=== PATIENT | male | born 1930 | race Caucasian/White ===

== ENCOUNTER 2017-03-09 14:08 | Inpatient (IN) | payer MEDICARE, OTHER ==
[~2017-03-09] VITALS: Ht 167.6 cm; Wt 81.5 kg
[2017-03-09] MEDS ORDERED: ASPIRIN 81 MG TABLET CHEW PO ONE (14:30)
[2017-03-09 14:57] LABS: ASPARTATE AMINO TRANSFERASE 24 U/L (15-37); BLOOD UREA NITROGEN 30 mg/dL (7-18)
[2017-03-09] MEDS ORDERED: CEFTRIAXONE PMX 1GM/50ML 50 ML IV ONE (15:00)
[2017-03-09 15:03] LABS: IS PT STATUS REG ER OR PRE ER? YES
[2017-03-09] MEDS ORDERED: ACETAMINOPHEN 325 MG TABLET PO PRN (15:30)
[2017-03-09] MEDS ORDERED: ONDANSETRON 2MG/ML, 2ML IVP PRN (15:30)
[2017-03-09] MEDS ORDERED: GUAIFENESIN/DM 200-20MG, 10ML UDC PO PRN (15:30)
[2017-03-09 17:09] VITALS: BP 120/64
[2017-03-09] MEDS: SODIUM CHLORIDE 0.9% 1,000 ML IV SCH (17:21)
[2017-03-09] MEDS ORDERED: DEXT15DR16 OP (18:21)
[2017-03-09] MEDS ORDERED: LOSA100T6 PO (18:21)
[2017-03-09] MEDS ORDERED: TAMS0.4C2 PO (18:21)
[2017-03-09] MEDS ORDERED: GABA300C10 PO (18:21)
[2017-03-09] MEDS ORDERED: MECL-76 PO (18:21)
[2017-03-09] MEDS ORDERED: DOCU240C53 PO (18:21)
[2017-03-09] MEDS ORDERED: ASPI81TA50 PO (18:21)
[2017-03-09] MEDS ORDERED: AMLO5TAB2 PO (18:21)
[2017-03-09] MEDS ORDERED: DOCU100C8 PO (18:21)
[2017-03-09] MEDS ORDERED: FURO20TA3 PO (18:21)
[2017-03-09] MEDS ORDERED: [UNRECOGNIZED DRUG - CODE] OP (18:21)
[2017-03-09] MEDS ORDERED: ATOR20TA9 PO (18:21)
[2017-03-09] MEDS ORDERED: ACET650T59 PO (18:21)
[2017-03-09] MEDS ORDERED: CHOL200040 PO (18:21)
[2017-03-09] MEDS ORDERED: AMLO10TA2 PO (18:21)
[2017-03-09] MEDS ORDERED: LANS15CA5 PO (18:21)
[2017-03-09] MEDS ORDERED: DULO30CA2 PO (18:21)
[2017-03-09] MEDS ORDERED: FINA5TAB4 PO (18:21)
[2017-03-09] MEDS: INSULIN REGULAR 100 UNITS/ML, 3ML VIAL SQ-INSULIN SCH ×2 (18:31→20:18)
[2017-03-09 19:36] VITALS: BP 127/65
[2017-03-09] MEDS: HEPARIN 5,000 UNITS/ML, 1ML SQ SCH (20:08)
[2017-03-09] MEDS: LEVOFLOXACIN/PMX 750MG/150ML 150 ML IV SCH (20:08)
[2017-03-10 01:46] VITALS: BP_SYST 120; BP_SYST 122; BP_DIAS 63
[2017-03-10] MEDS: SODIUM CHLORIDE 0.9% 1,000 ML IV SCH ×2 (03:18→11:46)
[2017-03-10] MEDS: HEPARIN 5,000 UNITS/ML, 1ML SQ SCH ×3 (05:23→19:48)
[2017-03-10 05:30] LABS: BLOOD UREA NITROGEN 31 mg/dL (7-18)
[2017-03-10 07:02] VITALS: BP 130/66
[2017-03-10 07:05] VITALS: BP 130/66
[2017-03-10] MEDS: INSULIN REGULAR 100 UNITS/ML, 3ML VIAL SQ-INSULIN SCH ×4 (08:54→20:11)
[2017-03-10 13:17] VITALS: BP 131/70
[2017-03-10 13:18] VITALS: BP 131/70
[2017-03-10] MEDS ORDERED: ARTIFICIAL TEARS OPHTH SOLN 15ML OP PRN (14:00)
[2017-03-10] MEDS: AMLODIPINE 5 MG TABLET PO SCH (14:00)
[2017-03-10] MEDS: LEVOFLOXACIN/PMX 750MG/150ML 150 ML IV SCH (19:48)
[2017-03-10 19:50] VITALS: BP 119/70
[2017-03-10] MEDS ORDERED: GABAPENTIN 300 MG CAPSULE PO SCH (21:00)
[2017-03-11 00:50] VITALS: BP 131/75
[2017-03-11] MEDS: SODIUM CHLORIDE 0.9% 1,000 ML IV SCH (02:45)
[2017-03-11] MEDS: HEPARIN 5,000 UNITS/ML, 1ML SQ SCH (05:05)
[2017-03-11 06:44] VITALS: BP 153/63
[2017-03-11 06:46] VITALS: BP 153/63
[2017-03-11] MEDS ORDERED: PANTOPROZOLE 40MG TABLET PO SCH (07:30)
[2017-03-11] MEDS: INSULIN REGULAR 100 UNITS/ML, 3ML VIAL SQ-INSULIN SCH (07:59)
[2017-03-11] MEDS: AMLODIPINE 5 MG TABLET PO SCH (08:01)
[2017-03-11] MEDS ORDERED: TAMSULOSIN 0.4 MG CAP.ER.24H PO SCH (09:00)
[2017-03-11] MEDS ORDERED: ATORVASTATIN 20 MG TABLET PO SCH (09:00)
[2017-03-11] MEDS ORDERED: DOCUSATE CALCIUM 240 MG CAPSULE PO SCH (09:00)
[2017-03-11] MEDS ORDERED: CHOLECALCIFEROL 1,000 UNIT TABLET PO SCH (09:00)
[2017-03-11] MEDS ORDERED: LOSARTAN 50MG TABLET PO SCH (09:00)
[2017-03-11] MEDS ORDERED: DULOXETINE 30 MG CAPSULE.DR PO SCH (09:00)
[2017-03-11] MEDS ORDERED: FINASTERIDE 5 MG TABLET PO SCH (09:00)
[2017-03-11] MEDS ORDERED: ASPIRIN 81 MG TABLET EC PO SCH (09:00)
[2017-03-11] MEDS ORDERED: LEVO750T6 PO (09:06)
[2017-03-11 10:30] LABS: BLOOD UREA NITROGEN 29 mg/dL (7-18)
== END 2017-03-11 12:00 | disposition home or self-care (01) | DRG 682 ==
LOC: ED 15:01 → EDIP 15:02 → SUATTDRO 15:08 → ED 15:37 → 3NW 17:18 → DCLOUNGE 03-11 11:45
PROVIDERS: ADMIT Internal Medicine; ATTEND Family Medicine
DX: N17.9 Acute kidney failure, unspecified (principal); J15.9 Unspecified bacterial pneumonia; E44.0 Moderate protein-calorie malnutrition; I10 Essential (primary) hypertension; E78.00 Pure hypercholesterolemia, unspecified; E11.9 Type 2 diabetes mellitus without complications; E78.5 Hyperlipidemia, unspecified; K21.9 Gastro-esophageal reflux disease without esophagitis; N40.0 Benign prostatic hyperplasia without lower urinary tract symptoms; Z85.46 Personal history of malignant neoplasm of prostate; Z88.0 Allergy status to penicillin; Z79.899 Other long term (current) drug therapy; Z88.2 Allergy status to sulfonamides; Z88.8 Allergy status to other drugs, medicaments and biological substances; Z68.29 Body mass index [BMI] 29.0-29.9, adult; Z90.49 Acquired absence of other specified parts of digestive tract; Z79.82 Long term (current) use of aspirin
CPT/HCPCS: 36415; 71010; 80048; 80053; 80061; 82962; 83036; 83605; 83880; 84145; 84484; 85025; 87040; 93005; 96365; J0696; J1644; J1815; J1956; J7030